=== PATIENT | male | born 1965 | race Caucasian/White ===

== ENCOUNTER 2017-08-17 19:18 | Emergency (ER) | payer OTHER, MEDICARE ==
[~2017-08-17] VITALS: Ht 190.5 cm; Wt 158.8 kg
[~2017-08-17 19:18] MED LIST: ATIVAN1 MG PO; BENZTROPINE MES1 MG PO; CARBAMAZEPINE200 MG PO; LEXAPRO20 MG PO; LISINOPRIL20 MG PO; MYSOLINE50 MG PO; NORCO 5-325 TA1 EAC1 PO; NORVASC5 MG PO; SYNTHROID75 MCG PO; ZONEGRAN100 MG PO
[2017-08-17] MEDS ORDERED: SYNTHROID88 MCG (19:44)
[2017-08-17] MEDS ORDERED: AUGMENTIN 875-1 EACH PO (19:47)
[2017-08-17 20:01] VITALS: BP 110/48
--- NOTE | 2017-08-18 16:41 | EKG ---
[place] [address] ELECTROCARDIOGRAM REPORT Name: BRINA LONG Room: [facility]#: [id number] Admission: 08/17/17 Attend Phys: Discharge: 08/17/17 Date of : 67 Report #: [id number] THIS REPORT FOR: //name// [facility] ED Test Date: 2017-08-17 Test Time: 20:26:00 Pat Name: BRINA LONG Department: Room: Gender: M [employer]: QUINTIN : 1965 Requested By: Ina Burns Order Number: [id number] Reading MD: Greg Poritllo Measurements Intervals [place] Rate: 67 P: 36 NE: 177 QRS: -44 QRSD: 111 T: 61 QT: 401 QTc: 424 Interpretive Statements Sinus rhythm Left axis deviation No previous ECG available for comparison Electronically Signed On 08-18-2017 16:41:21 CDT by Greg Portillo [email or web address] <ELECTRONICALLY SIGNED> By: Greg Portillo MD, [facility] 08/18/17 1641 2026 25 Greg Portillo MD, FACC /EPI
== END 2017-08-17 20:02 | disposition home or self-care (01) ==
LOC: M.ERS 19:18
DX: S61.452A Open bite of left hand, initial encounter (principal); S61.252A Open bite of right middle finger without damage to nail, initial encounter; I10 Essential (primary) hypertension; Z90.49 Acquired absence of other specified parts of digestive tract; W54.0XXA Bitten by dog, initial encounter; Y93.89 Activity, other specified; Y92.89 Other specified places as the place of occurrence of the external cause; Y99.8 Other external cause status